=== PATIENT | female | born 1965 | race Caucasian/White ===

== ENCOUNTER → 2017-04-17 | Outpatient (CLI) | payer OTHER ==
[~2017-04-17] MED LIST: MULTIPLE VITAMI1 CAP PO; NORCO 325 MG-7.1 TAB PO; [UNRECOGNIZED DRUG - OTHER] PO
== END ==
LOC: MC.RAD 08:40
DX: Z12.31 Encounter for screening mammogram for malignant neoplasm of breast (principal)

== ENCOUNTER → 2017-11-21 | Outpatient (CLI) | payer OTHER | LOC: COL.PUL 10:20 | DX: J45.909 Unspecified asthma, uncomplicated (principal) ==

== ENCOUNTER → 2017-11-28 | Outpatient (CLI) | payer OTHER | LOC: COL.RAD 11-25 14:00 | DX: J32.9 Chronic sinusitis, unspecified (principal); J45.909 Unspecified asthma, uncomplicated ==

== ENCOUNTER → 2018-04-20 | Outpatient (CLI) | payer OTHER | LOC: MC.RAD 14:00 | DX: Z12.31 Encounter for screening mammogram for malignant neoplasm of breast (principal) ==

== ENCOUNTER → 2018-08-07 | Outpatient (CLI) | payer OTHER ==
[2018-08-07 10:16] LABS: BASO # 0.1 (0.0-0.2); BASO % 0.8 % (0.0-2.0); EOS # 0.1 (0.0-0.7); EOS % 0.9 % (0-4.0); GRAN # 5.1 (1.4-6.5); GRAN % 68.6 % (42.2-75.2); HEMOGLOBIN 11.9 g/dl (12.5-16.0); LYMPH # 1.7 (1.2-3.4); LYMPH % 22.8 % (20.0-51.0); MEAN CELL VOLUME 94 fl (80.0-100.0); MEAN CORPUSCULAR HEMOGLOBIN 31 pg (27.0-31.0); MEAN CORPUSCULAR HGB CONC 33 g/dl (33.0-37.0); MEAN PLATELET VOLUME 9.5 fl (7.4-10.4); MONO # 0.5 (0.1-0.6); MONO % 6.6 % (1.7-9.3); PLATELET COUNT 241 K/mm3 (130-400); RED BLOOD COUNT 3.84 M/mm3 (4.10-5.30); REDCELL DISTRIBUTION WIDTH-CV 11.8 % (11.5-14.5)
[2018-08-07 10:18] LABS: HEMATOCRIT 35.9 % (37.0-47.0)
== END ==
LOC: COL.LAB 09:35
PROVIDERS: Internal Medicine Pulmonary Disease
DX: J45.909 Unspecified asthma, uncomplicated (principal)

== ENCOUNTER → 2019-05-13 | Outpatient (CLI) | payer OTHER | LOC: MC.RAD 08:45 | DX: Z12.31 Encounter for screening mammogram for malignant neoplasm of breast (principal) ==

== ENCOUNTER 2019-07-27 07:37 | Day surgery (SDC) | payer OTHER ==
[~2019-07-27] VITALS: Ht 170.2 cm; Wt 60.2 kg
[~2019-07-27 07:37] MED LIST changes: +GLUCOSAMINE & C1 CA2 PO; -[UNRECOGNIZED DRUG - OTHER] PO
[2019-07-27 07:54] VITALS: BP 121/70; PULSE 52; TEMP 97.9
[2019-07-27] MEDS ORDERED: SINGULAIR 110 MG/TAB PO (07:59)
[2019-07-27] MEDS ORDERED: DUAVEE PO (07:59)
[2019-07-27] MEDS ORDERED: IRON TABLETS325 MG PO (08:00)
[2019-07-27] MEDS ORDERED: ZYRTEC 10MG10 MG PO (08:00)
[2019-07-27] MEDS ORDERED: VENTOLIN0.09 MG IH (08:01)
[2019-07-27] MEDS ORDERED: VITAMIN D250 MCG PO (08:01)
[2019-07-27 09:50] VITALS: BP 96/59; PULSE 50; TEMP 97.8
--- NOTE | 2019-07-27 09:50 | NUR ---
The patient arrived back to [facility] from the endoscopy suite at this time. The patient ambulated from the cart to the recliner in her room with the stand by assistance of two nurses and appeared to tolerate the activity well. Post procedure vital signs were started at this time. The patient agrees to try some water and a muffin at this time. Call light is within reach. Will continue to monitor the patient.
[2019-07-27 10:05] VITALS: BP 107/73; PULSE 46
--- NOTE | 2019-07-27 10:05 | NUR ---
The patient is sitting up in the recliner eating her food and drink and appears to be resting comfortably at this time. The patient denies any further needs at this time. Vital signs appear stable. Will continue to monitor the patient.
[2019-07-27 10:20] VITALS: BP 97/57; PULSE 48
--- NOTE | 2019-07-27 10:20 | NUR ---
Discharge instructions were reviewed with the patient at this time. She verbalized understanding and has no questions for the nurse at this time. The patient's IV to her right anecubital was removed and a pressure dressing was applied to the site. The nurse instructed the patient to get dressed while the nurse called the patient's to come pick her up. Will continue to monitor the patient.
--- NOTE | 2019-07-27 10:35 | NUR ---
The patient was escorted out via wheelchair to a private vehicle by [place]. The patient's belongings and discharge paperwork were sent with her. The patient's is present to drive her home.
== END 2019-07-27 10:35 | disposition home or self-care (01) ==
LOC: SDCO 07:37
DX: Z12.11 Encounter for screening for malignant neoplasm of colon (principal); Z80.0 Family history of malignant neoplasm of digestive organs; K64.0 First degree hemorrhoids; J45.909 Unspecified asthma, uncomplicated; Z79.899 Other long term (current) drug therapy
CPT/HCPCS: J2250; J2405; J3010

== ENCOUNTER → 2020-05-15 | Outpatient (CLI) | payer OTHER ==
[~2020-05-15] MED LIST changes: +DUAVEE PO; +IRON TABLETS325 MG PO; +SINGULAIR 110 MG/TAB PO; +VENTOLIN0.09 MG IH; +VITAMIN D250 MCG PO; +ZYRTEC 10MG10 MG PO
== END ==
LOC: MC.RAD 08:26
DX: Z12.31 Encounter for screening mammogram for malignant neoplasm of breast (principal)

== ENCOUNTER → 2020-07-21 | Outpatient (CLI) | payer OTHER | LOC: COL.RAD 09:44 | DX: S76.011A Strain of muscle, fascia and tendon of right hip, initial encounter (principal); M67.853 Other specified disorders of tendon, right hip | CPT/HCPCS: A9585; Q9967 ==

== ENCOUNTER → 2021-07-03 | Outpatient (CLI) | payer BC | LOC: MC.RAD 11:45 | DX: Z12.31 Encounter for screening mammogram for malignant neoplasm of breast (principal) ==

== ENCOUNTER → 2022-11-07 | Outpatient (CLI) | payer BC | LOC: COL.RAD 08:17 | DX: M25.851 Other specified joint disorders, right hip (principal) | CPT/HCPCS: J3301; Q9967 ==

== ENCOUNTER → 2023-08-08 | Outpatient (CLI) | payer BC ==
[~2023-08-08] MED LIST changes: +Iohexol 300 - 10 ML VIAL IV ONE; +Triamcinolone 40 MG/ML 1 ML VIAL IJ ONE
== END ==
LOC: COL.RAD 07:37
DX: M94.251 Chondromalacia, right hip (principal)
CPT/HCPCS: J0665; J3301; Q9967

== ENCOUNTER → 2024-03-31 | Outpatient (CLI) | payer BC ==
[2006-04-01 07:00] VITALS: TEMP 98
== END ==
LOC: COL.RAD 09:31
DX: M25.551 Pain in right hip (principal)
CPT/HCPCS: J0665; J3301; Q9967